=== PATIENT | male | born 1990 | race Caucasian/White ===

== ENCOUNTER 2023-08-28 16:46 | Inpatient (IN) | payer OTHER ==
[2023-08-28 16:54] VITALS: BMI 25.8
[2023-08-28] MEDS ORDERED: DEXAMETHASONE SOD PHOSPHATE 4 MG/1 ML VIAL ONE (18:55)
[2023-08-28] MEDS ORDERED: METOCLOPRAMIDE HCL INJECTION 10 MG/2 ML VIAL ONE (18:55)
[2023-08-28] MEDS ORDERED: ACETAMINOPHEN INJECTION 100 ML IVPB ONE (18:55)
[2023-08-28 18:59] LABS: BASO % 0.5 % (0-2.0); EOS % 1.2 % (0-4.5); HEMATOCRIT 50.7 % (35.4-49); HEMOGLOBIN 17.7 GM/dL (11.7-16.9); LYMPH % 31.2 % (8-40); MCH 31.2 pg (25.7-33.7); MCHC 34.9 g/dl (32.0-35.9); MEAN CELL VOLUME 89.3 fl (80-96); MEAN PLT VOLUME 7.2 fl (7.5-11.1); NEUT % 58.1 % (42.8-82.8); PLATELET COUNT 245 10^3/uL (134-434); RBC 5.68 M/mm3 (4.00-5.60); RDW 12.9 % (11.9-15.9); WHITE BLOOD COUNT 9.1 K/mm3 (4.0-10.0)
[2023-08-28] MEDS: ACETAMINOPHEN 1000 MG/100 ML BAG IVPB ONE (19:07)
[2023-08-28] MEDS: DEXAMETHASONE SOD PHOSPHATE 20 MG/5 ML VIAL IVPB ONE (19:07)
[2023-08-28] MEDS: METOCLOPRAMIDE HCL INJECTION 10 MG/2 ML VIAL IVPUSH ONE (19:07)
[2023-08-28 19:17] LABS: CHLORIDE 107 mmol/L (98-107); SODIUM 136 mmol/L (136-145)
[2023-08-28 19:19] LABS: CALCIUM 9.1 mg/dL (8.5-10.1)
[2023-08-28 19:20] LABS: ALBUMIN 4.1 g/dl (3.4-5.0); BLOOD UREA NITROGEN 17.4 mg/dL (7-18); CO2 22 mmol/L (21-32); GLUCOSE,RANDOM 97 mg/dL (74-106)
[2023-08-28 19:23] LABS: CREATININE 1.2 mg/dL (0.55-1.3); SGOT/AST 42 U/L (15-37); SGPT/ALT 60 U/L (13-61)
[2023-08-28 19:24] LABS: BILIRUBIN,TOTAL 0.4 mg/dL (0.2-1)
[2023-08-28 19:25] LABS: TOT PROT 7.9 g/dl (6.4-8.2)
[2023-08-28 19:26] LABS: ALK PHOS 62 U/L (45-117)
[2023-08-28 19:33] LABS: ANION GAP 7 mmol/L (4-13); POTASSIUM 6.4 mmol/L (3.5-5.1)
[2023-08-29 00:53] LABS: HEMOGLOBIN 16.8 GM/dL (11.7-16.9); MCH 30.9 pg (25.7-33.7); MEAN CELL VOLUME 88.3 fl (80-96); MEAN PLT VOLUME 7.6 fl (7.5-11.1); PLATELET COUNT 260 10^3/uL (134-434); RBC 5.44 M/mm3 (4.00-5.60); RDW 13.3 % (11.9-15.9); WHITE BLOOD COUNT 12.9 K/mm3 (4.0-10.0)
[2023-08-29 01:13] LABS: POTASSIUM 4.3 mmol/L (3.5-5.1)
[2023-08-29 01:14] LABS: CALCIUM 9.5 mg/dL (8.5-10.1)
[2023-08-29 01:14] LABS: CALCIUM 9.4 mg/dL (8.5-10.1)
[2023-08-29 01:15] LABS: BLOOD UREA NITROGEN 17.5 mg/dL (7-18)
[2023-08-29 01:15] LABS: ALBUMIN 4.1 g/dl (3.4-5.0); BLOOD UREA NITROGEN 17.9 mg/dL (7-18); MAGNESIUM 1.9 mg/dL (1.8-2.4)
[2023-08-29 01:18] LABS: CREATININE 1.5 mg/dL (0.55-1.3); PHOSPHOROUS 1.6 mg/dL (2.5-4.9)
[2023-08-29 01:18] LABS: CREATININE 1.4 mg/dL (0.55-1.3)
[2023-08-29 01:19] LABS: BILIRUBIN,TOTAL 0.3 mg/dL (0.2-1); TOT PROT 7.8 g/dl (6.4-8.2)
[2023-08-29 08:39] VITALS: RESP 20
[2023-08-29 09:40] LABS: PH,URINE 5.5 (5.0-8.0); URINE APPEARANCE CLEAR; URINE BILIRUBIN NEGATIVE (NEGATIVE); URINE COLOR YELLOW; URINE GLUCOSE (UA) NEGATIVE (NEGATIVE); URINE KETONE TRACE (NEGATIVE); URINE LEUK ESTERASE NEGATIVE (NEGATIVE); URINE NITRITE NEGATIVE (NEGATIVE); URINE PROTEIN TRACE (NEGATIVE)
[2023-08-29] MEDS: ASPIRIN COATED 81 MG TABLET.EC PO SCH (09:50)
[2023-08-29] MEDS: ENOXAPARIN NA (PORCINE) 40 MG/0.4 ML DISP.SYRIN SQ SCH (09:50)
[2023-08-29 09:54] LABS: BASO % 0.1 % (0-2.0); HEMATOCRIT 48.2 % (35.4-49); HEMOGLOBIN 16.6 GM/dL (11.7-16.9); LYMPH % 10.8 % (8-40); MCHC 34.5 g/dl (32.0-35.9); MEAN PLT VOLUME 7.8 fl (7.5-11.1); MONO % 1.3 % (3.8-10.2); NEUT % 87.8 % (42.8-82.8); PLATELET COUNT 278 10^3/uL (134-434); RBC 5.36 M/mm3 (4.00-5.60); RDW 12.8 % (11.9-15.9); WHITE BLOOD COUNT 12.1 K/mm3 (4.0-10.0)
[2023-08-29] MEDS: NAPH,MB-DB/K PH,MBDB POWDER PACKET PO ONE (11:46)
[2023-08-29] MEDS ORDERED: ACETAMINOPHEN 1000 MG/100 ML BAG IVPB PRN (15:55)
[2023-08-29] MEDS: ACETAMINOPHEN 1000 MG/100 ML BAG IVPB PRN (16:10)
[2023-08-29 17:33] LABS: POTASSIUM 4.1 mmol/L (3.5-5.1)
[2023-08-29 18:29] VITALS: BP 117/54; PULSE 96; TEMP 97.8
== END 2023-08-29 22:40 | disposition left against medical advice (07) | DRG 694 ==
LOC: JER 16:46 → JERFT 16:46 → JERBED 20:17 → J6S 23:06
PROVIDERS: ADMIT Internal Medicine; ATTEND Internal Medicine
DX: D45 Polycythemia vera (principal); E87.5 Hyperkalemia; R51.9 Headache, unspecified
CPT/HCPCS: 36415; 80048; 80053; 81003; 82668; 83735; 84100; 85025; 85027; 86850; 86900; 86901; 88300-TC; 93005; 93010; 99285-25; J0131